=== PATIENT | female | born 1965 ===

== ENCOUNTER 2018-07-28 14:06 | Emergency (ER) | payer OTHER ==
[2018-07-28] MEDS ORDERED: Sodium Chloride 0.9% 1,000 ML IV STA (15:37)
[2018-07-28 16:01] LABS: BASO % 0.1 % (0.0-2.0); HEMOGLOBIN 13.5 g/dL (12.0-16.0); LYMPH # 0.7 K/uL (1.0-4.3); LYMPH % 4.5 % (20.0-40.0); MEAN CELL VOLUME 89.2 fl (81.0-99.0); MEAN CORPUSCULAR HEMOGLOBIN 31.2 pg (27.0-31.0); MEAN CORPUSCULAR HGB CONC 34.9 g/dL (33.0-37.0); MONO # 0.7 K/uL (0.0-0.8); MONO % 4.5 % (0.0-10.0); NEUT # 13.6 K/uL (1.8-7.0); NEUT % 90.9 % (50.0-75.0); NRBC % 0.1 % (0.0-0.0); PLATELET COUNT 430 K/uL (130-400); RBC 4.33 Mil/uL (3.80-5.20); RED CELL DISTRIBUTION WIDTH 12.7 % (11.5-14.5); WHITE BLOOD COUNT 14.9 K/uL (4.8-10.8)
[2018-07-28 16:09] LABS: ALB/GLOB RATIO 1.2 (1.0-2.1); ALBUMIN 4.6 g/dL (3.5-5.0); ALT/SGPT 53 U/L (9-52); AST/SGOT 30 U/L (14-36); BLOOD UREA NITROGEN 10 mg/dl (7-17); CALCIUM 9.6 mg/dL (8.4-10.2); GFR NON-AFRICAN AMERICAN > 60
[2018-07-28] MEDS ORDERED: Iohexol 240 (50 ml) PO ONE (17:24)
--- NOTE | 2018-07-28 17:25 | RAD ---
Date of service: 07/28/2018 HISTORY: Constipation COMPARISON: None available. FINDINGS: BOWEL: Normal. No obstruction. No free air. BONES: Normal. OTHER FINDINGS: Intrauterine contraceptive device (IUD) identified IMPRESSION: No significant or acute findings to account for/ related to the clinical presentation.
[2018-07-28] MEDS ORDERED: Iohexol 240 (50 ml) ONE (17:35)
--- NOTE | 2018-07-28 17:59 | ED PDOC ---
HPI: Abdomen Time Seen by Provider: 07/28/18 15:04 Chief Complaint (Nursing): Abdominal Pain Chief Complaint (Provider): Abdominal Pain History Per: Patient History/Exam Limitations: no limitations Onset/Duration Of Symptoms: Days (1x) Current Symptoms Are (Timing): Still Present Severity: Moderate Location Of Pain/Discomfort: Diffuse Associated Symptoms: Constipation Last Bowel Movement: Days Ago (2x weeks ago) Additional Complaint(s): 53 year old female presents to the ED with complaints of diffuse abdominal pain that started today. Patient reports that she has been constipated for 2x weeks and has passed very little gas since then. 3x weeks ago she was admitted to a hospital for a subarachnoid hemorrhage after trauma and has not had a bowel movement since getting discharged. Patient reports taking 2x laxatives today. Patient denies having any other complaints. Pt was discharged on zofran, meclizine and tramadol for pain PMD: None provided Past Medical History Reviewed: Historical Data, Nursing Documentation, Vital Signs Vital Signs: Last Vital Signs Temp 97.2 F L 07/28/18 14:08 Pulse 61 07/28/18 14:08 Resp 16 07/28/18 14:08 BP 142/81 07/28/18 14:08 Pulse Ox 99 07/28/18 14:08 - Medical History PMH: No Chronic Diseases Other PMH: SAH - 3 weeks ago, s/p fall - Surgical History Surgical History: No Surg Hx - Family History Family History: States: No Known Family Hx - Allergies Allergies/Adverse Reactions: Allergies Allergy/AdvReac Type Severity Reaction Status Date / Time No Known Allergies Allergy Verified 07/28/18 14:11 Review of Systems ROS Statement: Except As Marked, All Systems Reviewed And Found Negative Constitutional: Negative for: Fever, Chills Gastrointestinal: Positive for: Abdominal Pain, Constipation Physical Exam - Reviewed Nursing Documentation Reviewed: Yes Vital Signs Reviewed: Yes - Physical Exam Appears: Positive for: Well, Non-toxic, No Acute Distress Head Exam: Positive for: ATRAUMATIC, NORMOCEPHALIC Skin: Positive for: Normal Color Eye Exam: Positive for: Normal appearance ENT: Positive for: Normal ENT Inspection Cardiovascular/Chest: Positive for: Regular Rate, Rhythm. Negative for: Bradycardia, Tachycardia Respiratory: Positive for: Normal Breath Sounds. Negative for: Respiratory Distress Gastrointestinal/Abdominal: Positive for: Tenderness (diffuse abdominal tenderness), Distended. Negative for: Guarding Neurologic/Psych: Positive for: Alert, Oriented (3x) - Laboratory Results Result Diagrams: 07/28/18 15:54 18 15:54 - ECG O2 Sat by Pulse Oximetry: 99 (RA) - Radiology X-Ray: Viewed By Me, Read By Radiologist (see MDM) Medical Decision Making Medical Decision Makin:04 Initial impression: 53 year old female with abdominal pain Initial plan: * XRay abdomen w/ chest * CBC * CMP * IV NS 1,000 ml IV 1,000 mls/hr * reevaluation 17:21 XRay abdomen w/ chest read and reviewed by radiologist FINDINGS: BOWEL: Normal. No obstruction. No free air. BONES: Normal. OTHER FINDINGS: Intrauterine contraceptive device (IUD) identified IMPRESSION: No significant or acute findings to account for/ related to the clinical presentation. 17:24 Elevated white blood count, persistent abdominal pain, and constipation ordered CT abdomen and pelvis with PO and IV contrast CT shows fecal impaction and colitis. Discussed with Dr. Diaz. Will given cipro, flagyl and enema. Pt will be evaluated with Dr. Diaz for possible admission if she does not have BM and feel improvement of symptoms. Endorsed to [facility] pending re-evaluation after enema. Scribe Attestation: Documented by Ana Cowan, acting as a scribe for Cecilia Nava PA-C. Provider Scribe Attestation: All medical record entries made by the Scribe were at my direction and personally dictated by me. I have reviewed the chart and agree that the record accurately reflects my personal performance of the history, physical exam, medical decision making, and the department course for this patient. I have also personally directed, reviewed, and agree with the discharge instructions and disposition. Disposition - Clinical Impression Clinical Impression: Fecal impaction, Colitis - Patient ED Disposition Is Patient to be Admitted: Transfer of Care - Disposition Disposition: Transfer of Care Disposition Time: 23:20 Condition: STABLE Forms: [employer] (Yi)
[2018-07-28 18:20] LABS: BANDS 1 % (0-2); LYMPHOCYTE 5 % (20-50); MONOCYTE 4 % (0-10); NEUTROPHIL 90 % (42-75); PLATELET ESTIMATE SLIGHTLY INCREASED (NORMAL); TOTAL CELLS COUNTED 100
[2018-07-28 18:21] LABS: LARGE PLATELETS PRESENT
[2018-07-28] MEDS ORDERED: Morphine 4 MG/ML VIAL ONE (19:57)
[2018-07-28] MEDS ORDERED: Iohexol 300 100 ML IJ ONE (20:04)
[2018-07-28] MEDS ORDERED: Sodium Chloride 0.9% 50 ML IV ONE (20:05)
[2018-07-28 21:06] LABS: SQUAMOUS EPITHIAL < 1 /hpf (0-5); URINE BACTERIA RARE (<OCC); URINE BILIRUBIN NEGATIVE (NEGATIVE); URINE BLOOD SMALL (NEGATIVE); URINE CLARITY SLIGHTY-CLOUDY (Clear); URINE COLOR YELLOW (YELLOW); URINE GLUCOSE (UA) NEG (Normal); URINE LEUKOCYTE ESTERASE NEG Leu/uL (Negative); URINE PROTEIN NEGATIVE (NEGATIVE)
--- NOTE | 2018-07-28 22:53 | ED PDOC ---
- Laboratory Results Result Diagrams: 07/28/18 15:54 07/28/18 15:54 - ECG O2 Sat by Pulse Oximetry: 97 (RA) Pulse Ox Interpretation: Normal Medical Decision Making Medical Decision Making: Case endorsed to repairer typewriter, Arely WATTS, at 2300. Pertinent details/labs reviewed. Patient pending re-evaluation and consult with Dr Diaz. 0055 Patient with large BM in ED and is reporting improvement of symptoms at this time. [address] Diaz, who states patient can be treated outpatient with antibiotics. Admission not necessary at this time. On re-evaluation, patient reports improvement of symptoms. On exam, patient remains AAOx3, in no acute distress. Lungs clear to auscultation, cardiac RRR, abdomen soft, non-tender, repeat neuro exam shows no focal findings. VSS, stable for discharge. High fiber diet encouraged. Lab/Diagnostic results d/w the patient in great detail. Diagnosis of abdominal pain, colitis, constipation d/w the patient. Based on history, exam and diagnostic results, plan will be for outpatient foll ow up. Patient instructed to follow-up with pmd / referral provided / the clinic in 1- 2 days without fail. Advised to take medication as prescribed. Return to the emergency room at any time for any new or worsening symptoms. Patient states she fully agrees with and understands discharge instructions. States that she agrees with the plan and disposition. Verbalized and repeated discharge instructions and plan. I have given the patient opportunity to ask any additional questions. Disposition Counseled Patient/Family Regarding: Studies Performed, Diagnosis, Need For Followup, Rx Given - Clinical Impression Clinical Impression: Fecal impaction, Colitis, Abdominal pain - POA Present On Arrival: None - Disposition Referrals: [facility] [Outside] Disposition: Routine/Home Disposition Time: 01:50 Condition: STABLE Additional Instructions: La atencin mdica de emergencia que recibi hoy se dirigi hacia los sntomas agudos de presentacin. Si le recetaron algn medicamento, llnelo y adminstrelo segn las indicaciones. Los sntomas pueden tardar varios jha en resolverse. Regrese al Departamento de Emergencias en cualquier momento si los sntomas empeoran, no mejoran o si surgen otros problemas. Comunquese con mccullough mdico dentro de 2 jha para nils nueva evaluacin y dolores un seguimiento o llame a dorothy de los mdicos / clnicas a los que palma sido referido y que figuran en el formulario de Informacin de visita al paciente que se incluye en mccullough paquete de romaine. Lleve todos los documentos que le entregaron al momento del romaine junto con cualquier medicamento a mccullough visita de seguimiento. Nuestro tratamiento no puede reemplazar la atencin mdica continua por parte de un proveedor de atencin primaria (PCP) fuera del departamento de emergencias. Prescriptions: Ciprofloxacin HCl [Cipro] 500 mg PO BID #14 tablet Metronidazole [Flagyl] 500 mg PO TID #21 tablet Polyethylene Glycol 3350 [Miralax] 17 gm PO DAILY PRN #170 ml PRN Reason: Constipation Instructions: Constipation in Adults, Fecal Impaction, High Fiber Diet, Acute Abdomen (Belly Pain) Forms: [employer] (Grenadian) Print Language: ALBANIAN Results - Lab Results Lab Results: 07/28/18 07/28/18 07/28/18 20:55 15:54 15:54 WBC 14.9 H RBC 4.33 Hgb 13.5 Hct 38.6 MCV 89.2 MCH 31.2 H MCHC 34.9 RDW 12.7 Plt Count 430 H MPV 7.0 L Neut % (Auto) 90.9 H Lymph % (Auto) 4.5 L [place] % (Auto) 4.5 Eos % (Auto) 0.0 Baso % (Auto) 0.1 Neut # (Auto) 13.6 H Lymph # (Auto) 0.7 L [place] # (Auto) 0.7 Eos # (Auto) 0.0 Baso # (Auto) 0.0 Neutrophils % (Manual) 90 H Band Neutrophils % 1 Lymphocytes % (Manual) 5 L Monocytes % (Manual) 4 Platelet Estimate Slightly increased H Large Platelets Present RBC Morphology Normal Sodium 130 L Potassium 4.8 Chloride 91 L Carbon Dioxide 21 L Anion Gap 23 H BUN 10 Creatinine 0.6 L Est GFR ( Amer) > 60 Est GFR (Non-Af Amer) > 60 Random Glucose 136 H Calcium 9.6 Total Bilirubin 0.5 AST 30 ALT 53 H Alkaline Phosphatase 118 Total Protein 8.5 H Albumin 4.6 Globulin 3.9 Albumin/Globulin Ratio 1.2 Urine Color Yellow Urine Clarity Slighty-cloudy Urine pH 6.0 Ur Specific [place] 1.016 Urine Protein Negative Urine Glucose (UA) Neg Urine Ketones Negative Urine Blood Small Urine Nitrate Negative Urine Bilirubin Negative Urine Urobilinogen 2.0 H Ur Leukocyte Esterase Neg Urine RBC (Auto) 1 Urine Microscopic WBC < 1 Ur Squamous Epith Cells < 1 Urine Bacteria Rare
[2018-07-28] MEDS ORDERED: metroNIDAZOLE 500mg/100ml NS 100 ML IV ONE (23:10)
[2018-07-28] MEDS ORDERED: Ciprofloxacin 400mg/200ml D5W 400 MG/200 ML BAG IVPB STA (23:10)
[2018-07-28] MEDS ORDERED: Ciprofloxacin 400mg/200ml D5W 400 MG/200 ML BAG IVPB ONE (23:20)
[2018-07-28] MEDS ORDERED: metroNIDAZOLE 500mg/100ml NS 100 ML IVPB ONE (23:20)
[2018-07-29 00:54] VITALS: O2SAT 97
[2018-07-29 03:56] VITALS: BP 138/80; PULSE 63; RESP 15; TEMP 98.6
--- NOTE | 2018-07-29 10:00 | CT ---
Date of service: 07/28/2018 PROCEDURE: CT Abdomen and Pelvis with contrast HISTORY: abdominal pain, constipation, elevated wbc COMPARISON: None. TECHNIQUE: Contrast dose: Radiation dose: Total exam DLP = 321.18 mGy-cm. This CT exam was performed using one or more of the following dose reduction techniques: Automated exposure control, adjustment of the mA and/or kV according to patient size, and/or use of iterative reconstruction technique. FINDINGS: LOWER THORAX: Small hiatal hernia. Status post bilateral breast augmentation. LIVER: Unremarkable. No gross lesion or ductal dilatation. GALLBLADDER AND BILE DUCTS: Cholecystectomy. PANCREAS: Unremarkable. No gross lesion or ductal dilatation. SPLEEN: Unremarkable. ADRENALS: Unremarkable. No mass. KIDNEYS AND URETERS: Unremarkable. No hydronephrosis. No solid mass. VASCULATURE: Unremarkable. No aortic aneurysm. No aortic atherosclerotic calcification or mural plaque present. BOWEL: Circumferential mural thickening involving the colon which is diffusely dilated and contains a large amount of feces particularly in the rectosigmoid region compatible with fecal impaction. APPENDIX: Normal appendix. PERITONEUM: Unremarkable. No free fluid. No free air. LYMPH NODES: Unremarkable. No enlarged lymph nodes. BLADDER: Unremarkable. REPRODUCTIVE: Unremarkable. BONES: No acute fracture. OTHER FINDINGS: None. IMPRESSION: Circumferential mural thickening involving the colon which is diffusely dilated and contains a large amount of feces particularly in the rectosigmoid region compatible with fecal impaction. Correlate for colitis.
== END 2018-07-29 03:57 | disposition home or self-care (01) ==
LOC: H.ER 14:06
DX: K56.41 Fecal impaction (principal); K52.9 Noninfective gastroenteritis and colitis, unspecified; R10.9 Unspecified abdominal pain
CPT/HCPCS: 74022; 74177; 80053; 81003; 85025; 87040; 96360; 96374; 99283; J0744; J2270; J2405; J7030; Q9966; Q9967